=== PATIENT | female | born 1950 | race African-American/Black ===

== ENCOUNTER → 2016-07-19 | Outpatient (CLI) | payer BC ==
[~2016-07-19] MED LIST: ALBU18HF INH; ALBU8.5H3 IH; ASPI-496 PO; AZEL23SP NS; BUDE10.22 INH; CEPH-368 PO; CHOL100018 PO; COQ10 PO; DOCU100T6 PO; FEXO180T72 PO; HYDR-3240 PO; MONT10TA9 PO; MULT-257 PO; OMEP40CA3 PO; PRAS25CA6 PO; RED YEAST RICE PO; TIOT18CA INH; VITA400T6 PO; VITAMIN D3 PO
== END | disposition home or self-care (01) ==
LOC: CFH 09:59
PROVIDERS: ATTEND Family Medicine
DX: Z13.820 Encounter for screening for osteoporosis (principal); E04.9 Nontoxic goiter, unspecified; M81.0 Age-related osteoporosis without current pathological fracture
CPT/HCPCS: 76536; 77080

== ENCOUNTER → 2016-10-26 | Outpatient (CLI) | payer BC | END | disposition home or self-care (01) | LOC: CFH 14:25 | PROVIDERS: ATTEND Family Medicine | DX: Z12.31 Encounter for screening mammogram for malignant neoplasm of breast (principal) | CPT/HCPCS: G0202 ==

== ENCOUNTER → 2017-06-16 | Outpatient (CLI) | payer BC ==
[~2017-06-16] MED LIST changes: -ALBU8.5H3 IH; +ALBU8.5H8 IH; +CHOL100012 PO; -CHOL100018 PO
== END | disposition home or self-care (01) ==
LOC: RAD 16:23
PROVIDERS: ATTEND Nurse Practitioner
DX: J45.909 Unspecified asthma, uncomplicated (principal)
CPT/HCPCS: 71046